=== PATIENT | male | born 1960 | race Caucasian/White ===

== ENCOUNTER 2017-05-27 06:45 | Day surgery (SDC) | payer OTHER ==
[2014-03-08 13:56] VITALS: BMI 29.2
--- NOTE | 2017-05-27 08:23 | CP.SDSHP ---
Same Day Surgery H & P - History Proposed Procedure: COLONSCOPY Pre-Op Diagnosis: SEE NOTES - Previous Medical/Surgical History Endocrine/Metabolic: Other Misc: Other Pain: 4.Moderate Pain - Allergies Allergies: Allergies seasonal Allergy (Mild, Uncoded 05/20/13 20:29) COUGH seasonal allergies - Physical Exam General Appearance: N Vital Signs: Vital Signs 05/27/17 07:42 Temperature 98.2 F Pulse Rate 72 Respiratory 19 Rate Blood Pressure 123/73 O2 Sat by Pulse 99 Oximetry Mental Status: Alert & Oriented x3 Neuro: WNL Heart: WNL Lungs: WNL GI: Other - {Optional Preform as Required} Breast: WNL Abdomen: Other Rectal: Other Integument: WNL : WNL Ortho: Other ENT: WNL - Impression Pt. Evaluated Today:Candidate for Anesthesia & Procedure: Yes - Date & Time Time: 08:23 Short Stay Discharge - Short Stay Discharge Admitting Diagnosis/Reason for Visit: HEMORRHAGE OF ANUS AND RECTUM Disposition: HOME/ ROUTINE
[2017-05-27] MEDS ORDERED: Lactated Ringer's 1,000 ML IV ONE (08:24)
[2017-05-27] MEDS ORDERED: Propofol 10 mg/ml Inj (20 ML) ONE (08:26)
[2017-05-27 09:04] VITALS: TEMP 97.1
[2017-05-27] MEDS ORDERED: Belladonna-Phenobarbital PO ONE (09:15)
[2017-05-27 11:18] VITALS: O2SAT 98
[2017-05-27 11:21] VITALS: BP 116/68; PULSE 68; RESP 12
== END 2017-05-27 10:40 | disposition home or self-care (01) ==
LOC: C.ENDO 06:45
PROVIDERS: ATTEND Specialist
DX: K60.2 Anal fissure, unspecified (principal); K52.9 Noninfective gastroenteritis and colitis, unspecified; K64.8 Other hemorrhoids; K62.5 Hemorrhage of anus and rectum; R10.84 Generalized abdominal pain; R19.4 Change in bowel habit
CPT/HCPCS: 45380; 88305; J2704; J7120